=== PATIENT | male | born 1935 | race Caucasian/White ===

== ENCOUNTER 2023-11-29 12:57 | Emergency (ER) | payer MEDICARE ==
[2023-11-29] VITALS (7 sets, daily range): BP systolic 129–165; BP diastolic 60–103
[~2023-11-29] VITALS: Ht 182.9 cm; Wt 92.9 kg
[2023-11-29] MEDS ORDERED: ELIQUIS2.5 MG (13:57)
[2023-11-29] MEDS ORDERED: LISINOPRIL2.5 MG PO (13:58)
== END 2023-11-29 15:45 | disposition home or self-care (01) ==
LOC: ED 12:57
DX: S40.011A Contusion of right shoulder, initial encounter (principal); M79.671 Pain in right foot; I10 Essential (primary) hypertension; I48.91 Unspecified atrial fibrillation; F17.220 Nicotine dependence, chewing tobacco, uncomplicated; W01.0XXA Fall on same level from slipping, tripping and stumbling without subsequent striking against object, initial encounter; Y92.009 Unspecified place in unspecified non-institutional (private) residence as the place of occurrence of the external cause

== ENCOUNTER 2024-09-02 17:12 | Observation (INO) | payer OTHER, MEDICARE ==
[~2024-09-02] VITALS: Ht 182.9 cm; Wt 89.0 kg
[2024-09-02] VITALS (12 sets, daily range): BP systolic 131–198; BP diastolic 65–103
[~2024-09-02 17:12] MED LIST: ELIQUIS2.5 MG PO; LISINOPRIL2.5 MG PO
--- NOTE | 2024-09-02 17:12 | NUR ---
PT ARRIVED TO ER; MET AT EMS BAY BY NEUROLOGY AND DR HOLDEN; PT TO CT VIA STRETCHER
[2024-09-02] MEDS ORDERED: Iopamidol 370 (Isovue) 76% 100 ML SDV IV ONE ×2 (17:15)
--- NOTE | 2024-09-02 17:19 | NUR ---
PT ARRIVES BY EMS WITH A COMPLAINT OF ATAXIA AND WEAKNESS 25 MINUTES PRIOR TO ARRIVAL. PT STATES AN HOUR PRIOR TO ARRIVAL HE STARTED TO FEEL WEAK AND DECIDED TO GO HOME FROM A FRIENDS HOUSE AND CALLED EMS.
[2024-09-02 17:30] LABS: BASO% 0.4 % (0-3); EOS% 0.3 % (0-8); HEMATOCRIT 39.7 % (39.0-50.0); IMMATURE GRANULOCYTES 0.4 % (0.0-5.0); LYMPH% 19.6 % (15-41); MEAN CORPUSCULAR HGB 31.1 pG CALC (26.0-32.0); MEAN CORPUSCULAR HGB CONC 32.7 g/dL CAL (32.0-36.0); MONO% 7.1 % (2-13); NEUT# 6.74 thou/uL (1.82-7.42); NEUT% 72.2 % (42-76); RED BLOOD COUNT 4.18 mill/uL (4.70-6.10)
[2024-09-02 17:47] LABS: ALBUMIN 4.3 g/dL (3.2-5.0); BILIRUBIN, TOTAL 0.8 mg/dL (0.2-1.3); CHOLESTEROL HDL RATIO 2.2 (<4.4 (CALC)); CREATININE 0.9 mg/dL (0.7-1.3); POTASSIUM 4.8 mmol/l (3.5-5.1); TOTAL PROTEIN 7.2 g/dL (6.3-8.2)
[2024-09-02] MEDS ORDERED: ASPIRIN 81 MG/TAB PO ONE (17:50)
[2024-09-02 17:52] LABS: PROTHROMBIN TIME 11.2 SECONDS (9.0-12.5)
--- NOTE | 2024-09-02 18:31 | NUR ---
PTS DAUGHTER CALLED AND UPDATED ON PT STATUS.
--- NOTE | 2024-09-02 19:00 | NUR ---
PT AWAITING FOR CT RESULTS AT THIS TIME. PT UPDATED ON POC, PT VOICES UNDERSTANDING WITH NO FRUTHER QUESTIONS OR CONCERNS. PT CALL LIGHT WITHIN REACH.
--- NOTE | 2024-09-02 19:00 | NUR ---
RECIEVED REPORT FROM SANKET ZAMORA.
[2024-09-02] MEDS ORDERED: METOCLOPRAMIDE HCL 10 MG/2 ML SDV IV ONE (20:40)
[2024-09-02] MEDS ORDERED: ACETAMINOPHEN 500 MG TAB PO ONE (20:45)
[2024-09-02] MEDS ORDERED: DiphenhydrAMINE HCL 50 MG/ML SDV IV ONE (20:45)
--- NOTE | 2024-09-02 20:56 | NUR ---
PT MEDICATED PER MD ORDERS. PT UPDATED ON POC, AWAITING FOR ROOM ASSIGNMENT AT THIS TIME. PT VOICES UNDERSTANDING WITH NO FURTHER QUESTIONS. PT CALL LIGHT WITHIN REACH.
[2024-09-02] MEDS ORDERED: ATORVASTATIN CALCIUM 40 MG/TAB PO SCH (21:02)
[2024-09-02] MEDS ORDERED: ACETAMINOPHEN 500 MG TAB PO PRN (21:05)
[2024-09-02] MEDS ORDERED: ONDANSETRON HCl 4 MG/2 ML SDV IV PRN (21:10)
[2024-09-02] MEDS ORDERED: MAGNESIUM HYDROXIDE 30 ML UDC PO PRN (21:55)
[2024-09-02] MEDS ORDERED: SODIUM CHLORIDE 0.9% 1,000 ML IV PRN (21:55)
--- NOTE | 2024-09-02 22:18 | NUR ---
PT UPDATED ON POC, AWAITING FOR TRANSPORT TO A MORE PRIVATE ROOM. PT VOICES UNDERSTADNING WITH NO FURTHER QUESTIONS. PT CALL LIGHT WITHIN REACH, LIGHTS DIMMED FOR PT COMFORT.
--- NOTE | 2024-09-02 23:18 | NUR ---
PT AWAITING FOR AVAILABILITY OF PRIVATE ROOM.
[2024-09-03] VITALS (28 sets, daily range): BP systolic 121–207; BP diastolic 61–144
--- NOTE | 2024-09-03 00:18 | NUR ---
PT AWAITING FOR AVAILABILITY OF PRIVATE ROOM.
--- NOTE | 2024-09-03 01:18 | NUR ---
PT AWAITING FOR AVAILABILITY OF PRIVATE ROOM.
[2024-09-03] MEDS ORDERED: APIXABAN BASE 5 MG TAB PO ONE (02:20)
--- NOTE | 2024-09-03 02:20 | NUR ---
PT WHEELED TO BATHROOM AT THIS TIME.
--- NOTE | 2024-09-03 02:25 | NUR ---
PT AMB TO ROOM #15 WITH EVEN AND STEADY GAIT. PT IN ROOM #15 ICU OVERFLOW.
--- NOTE | 2024-09-03 02:39 | NUR ---
PT MEDICATED PER MD ORDERS.
--- NOTE | 2024-09-03 03:00 | NUR ---
PT RESTING IN BED, NAD NOTED. PT STABLE WITH NO NOTED DEFICITS. PT CALL LIGHT WITHIN REACH.
--- NOTE | 2024-09-03 04:00 | NUR ---
PT RESTING IN BED, NAD NOTED. PT STABLE WITH NO NOTED DEFICITS. PT CALL LIGHT WITHIN REACH.
--- NOTE | 2024-09-03 05:00 | NUR ---
PT RESTING IN BED, NAD NOTED. PT STABLE WITH NO NOTED DEFICITS. PT CALL LIGHT WITHIN REACH.
--- NOTE | 2024-09-03 06:02 | NUR ---
PT MEDICATED PER MD ORDERS. PT REQUESTS CUP OF COFFEE.
--- NOTE | 2024-09-03 06:04 | NUR ---
MRI CHECKLIST COMPLETED WITH PATIENT. PATIENT REPORTS HE DOES NOT HAVE A PACEMAKER BUT HE HAS "SOMETHING THAT TELLS YOU IF YOU HAVE HAD A HEART ATTACK, WHEN YOUR HEARTS BEATS WEIRD." PATIENT ASKED IF IT IS A LOOP RECORDED AND STATES "YES". RECENT X RAY RESULTS REVIEWED (08/28/24) NO LOOP RECORDER NOTED PER READINGS, BUT PATIENT DOES HAVE A WATCHMAN, PER RADIOLOGIST READINGS. REVIEWED AND NO LOOP RECORDER PATIENT DENIES HAVING ANY OTHER METAL IN HIS BODY.
--- NOTE | 2024-09-03 06:11 | NUR ---
PT GIVEN CUP OF COFEE. PT VOICES APPRECIATION OF CARE.
--- NOTE | 2024-09-03 07:00 | NUR ---
Patient sitting in bed with no complaints.
--- NOTE | 2024-09-03 09:00 | NUR ---
Patient in MRI.
--- NOTE | 2024-09-03 11:00 | NUR ---
Patient watching television.
[2024-09-03] MEDS ORDERED: hydrALAZINE HCL 20 MG/ML VIAL(1 ML) IV PRN (11:20)
--- NOTE | 2024-09-03 13:00 | NUR ---
Patient with family in room watching television.
--- NOTE | 2024-09-03 14:40 | NUR ---
Report called to ICU nurse for patient transfer to ICU.
--- NOTE | 2024-09-03 14:47 | NUR ---
Patient transported to 2nd floor ICU via wheelchair.
--- NOTE | 2024-09-03 14:55 | NUR ---
PT BROUGHT UP VIA WHEELCHAIR BY SERA QUINTERO. PT IN STABLE CONDTION. PT IS IN BED AWAKE CONNECTED TO TELEMETRY.
--- NOTE | 2024-09-03 16:05 | NUR ---
PT IS WATCHING TV IN BED.
--- NOTE | 2024-09-03 18:00 | NUR ---
PT IS SITTING IN THE CHAIR WATCHING TV.
--- NOTE | 2024-09-03 19:00 | NUR ---
REPORT RECEICED FROM OFF GOING NURSE. BEDSIDE NIH COMPLETED. NO DEFICITS NOTED.
--- NOTE | 2024-09-03 20:00 | NUR ---
PATIENT LYING IN BED WITH NO ACUTE DISTRESS NOTED. VSS. ASSESSMENT COMPLETED (SEE INTERVENTIONS). HE IS AFIB CONTROLLED ON THE MONITOR. NO DEFICITS NOTED. HE DENIES ANY PAIN OR DISCOMFORT. BED LOCKED, IN LOW POSITION, CALL LIGHT WITHIN REACH.
[2024-09-03] MEDS ORDERED: APIXABAN BASE 5 MG TAB PO SCH (21:00)
--- NOTE | 2024-09-03 22:00 | NUR ---
PATIENT LYING IN BED WITH HOB ELEVATED. NO ACUTE DISRESS NOTED AT THIS TIME. BED LOCKED, IN LOW POSITION, CALL LIGHT WITHIN REACH.
--- NOTE | 2024-09-03 22:55 | NUR ---
PATIENT GIVEN HYDRALAZINE X 1 DOSE AT THIS TIME.
[2024-09-04] VITALS (14 sets, daily range): BP systolic 96–195; BP diastolic 75–144
--- NOTE | 2024-09-04 | NUR ---
PATIENT SLEEPING WITH NO ACUTE DISTRESS NOTED.
--- NOTE | 2024-09-04 02:19 | NUR ---
PATIENT UP TO BATHROOM AT THIS TIME.
[2024-09-04 05:59] LABS: BASO% 0.6 % (0-3); EOS% 2.3 % (0-8); HEMATOCRIT 42.5 % (39.0-50.0); HEMOGLOBIN 14.1 g/dl (14.0-18.0); IMMATURE GRANULOCYTES 0.3 % (0.0-5.0); LYMPH% 25.3 % (15-41); MEAN CELL VOLUME 94.9 fL CALC (80.0-100.0); MEAN CORPUSCULAR HGB 31.5 pG CALC (26.0-32.0); MEAN CORPUSCULAR HGB CONC 33.2 g/dL CAL (32.0-36.0); MONO% 9.1 % (2-13); NEUT# 5.66 thou/uL (1.82-7.42); NEUT% 62.4 % (42-76); RED BLOOD COUNT 4.48 mill/uL (4.70-6.10); RED CELL DISTRI WIDTH 12.9 % (11.5-15.5)
--- NOTE | 2024-09-04 06:00 | NUR ---
NO CHANGES NOTED. ADEQUATE OUTPUT NOTED, PATIENT UP TO BATHROOM MULTIPLE TIMES THROUGHOUT THE NIGHT. VSS. CALL LIGHT WITHIN REACH.
[2024-09-04 06:04] LABS: ALBUMIN 4.1 g/dL (3.2-5.0); CREATININE 0.7 mg/dL (0.7-1.3); MAGNESIUM 2.2 mg/dL (1.6-2.3)
--- NOTE | 2024-09-04 08:00 | NUR ---
PATIENT AWAKE, ALERT, A+OX3, SPEECH CLEAR, SITTING UP IN BED. BEDSIDE SHIFT REPORT RECEIVED. RR EVEN AND UNLABORED. PATIENT REPORTS FEELING WELL AND LOOKING FORWARD TO DISCHARGE. DENIES ANY NEEDS AT THIS TIME. WILL CONTINUE TO MONITOR, CALL LIGHT IN REACH.
[2024-09-04] MEDS ORDERED: LISINOPRIL 20 MG/TAB PO SCH (09:00)
--- NOTE | 2024-09-04 10:00 | NUR ---
PATIENT IS CALM, SITTING UP IN BED. GETS UP TO BATHROOM AFTER USING CALL LIGHT TO ASK TO BE DISCONNECTED FROM MONITOR. PATIENT DENIES ANY ISSUES OR NEEDS. RR EVEN AND UNLABORED. [facility]OS[facility]. FAX RECEIVED. CALL LIGHT IN REACH, WILL CONTINUE TO MONITOR.
--- NOTE | 2024-09-04 12:00 | NUR ---
PATIENT IS CALM, SITTING UP IN BED. RR EVEN AND UNLABORED. SISTER AT BEDSIDE. DR. HENLEY WORKING ON DISCHARGE ORDERS. WILL PREPARE PATIENT FOR DISCHARGE.
[2024-09-04] MEDS ORDERED: METOPROL TAR25 M1 PO (12:19)
[2024-09-04] MEDS ORDERED: AMLODIPINE BESY10 MG PO (12:19)
[2024-09-04] MEDS ORDERED: ZOLOFT100 MG PO (12:19)
[2024-09-04] MEDS ORDERED: STRIVERDI2.5 MCG/AC (12:20)
[2024-09-04] MEDS ORDERED: amLODIPine BESYLATE 5 MG/TAB PO SCH (13:00)
--- NOTE | 2024-09-04 13:03 | NUR ---
Discharge instructions given. Patient verbalizes understanding of them. Discharged in stable condition via Wheelchair to Home with staff. All belongings sent with pt. IV REMOVED, CATHETER INTACT.
[2024-09-04] MEDS ORDERED: ELIQUIS5 MG PO (17:22)
--- NOTE | 2024-09-07 10:46 | NUR ---
Discharge follow up call completed 09/07/24. Pt states he is doing well and had no issues since discharge. Pt states his appetite has returned and he is eating and reinking well. Pt. has returned to his regular medication routine as directed. Pt does not have a PCP in [place] as he lives in [place]. Home Health is scheduled to visit on Wednesday. No needs or concerns verbalized by patient at this time. Encouraged patient to contact DM if he experiences any further symptoms. Patient verbalizes understanding.
== END 2024-09-04 13:00 | disposition home health service (06) | DRG 69 ==
LOC: ED 17:12 → ED-I 20:44 → ED 20:59 → ED-I 21:00 → ICU 21:00
PROVIDERS: Family Medicine; ADMIT Internal Medicine; ATTEND Internal Medicine
DX: G45.9 Transient cerebral ischemic attack, unspecified (principal); I10 Essential (primary) hypertension; I48.91 Unspecified atrial fibrillation; Z79.01 Long term (current) use of anticoagulants; Z72.0 Tobacco use; T45.516A Underdosing of anticoagulants, initial encounter; Z91.128 Patient's intentional underdosing of medication regimen for other reason
CPT/HCPCS: J0360; J1200; J2765; Q9967